=== PATIENT | female | born 1965 | race Caucasian/White ===

== ENCOUNTER 2018-03-13 23:05 | Emergency (ER) | payer BC ==
--- NOTE | 2018-03-14 00:17 | EDPHY ---
H & P Stated Complaint: L ankle inj Source: Patient, Family () Exam Limitations: No limitations - Personal History LMP (Females 10-55): Post Menopausal Current Tetanus Diphtheria and Acellular Pertussis (TDAP): Yes - Medical/Surgical History Hx Asthma: No Hx Chronic Respiratory Disease: No Hx Diabetes: No Hx Cardiac Disease: No Hx Renal Disease: No Hx Cirrhosis: No Hx Alcoholism: No Hx HIV/AIDS: No Hx Splenectomy or Spleen Trauma: No Other PMH: HTN - Social History Smoking Status: Never smoked Time Seen by Provider: 03/14/18 00:15 HPI/ROS: HPI: This is a 52-year-old female who presents with Chief Complaint: Left ankle injury Location: Left ankle Quality: Injury Duration: 1-3 hours prior to arrival Signs and Symptoms: No bleeding, no radiation, no numbness, no weakness, no tingling, no incontinence, + decreased range of motion, + swelling, + pain, no fever Timing: Acute Severity: Moderate Context: Patient is originally from [facility] here for the grateful [place] with her presents with complaints of left ankle injury while at the concert. Patient reports that she was getting into the music and she lost her balance causing her to twist her ankle. She is unsure but she somehow twisted her left ankle. Upon trying to ambulate she had increased pain with weight-bearing status. EMS taped her ankle at the concert. She notes bruising of her ankle. Denies LOC/head injury/neck pain/dizziness/nausea/vomiting/ amnesia. Patient is to drinking alcohol and smoking marijuana this evening. Modifying Factors: Comment: ROS: see HPI Constitutional: No fever, no chills, no weight loss Eyes: No blurred vision Respiratory: No shortness of breath, no cough Cardiovascular: No chest pain Gastrointestinal: No nausea, no vomiting no diarrhea Genitourinary: No dysuria Extremities: No myalgias Neurologic: No weakness, no numbness Skin: No rashes Hematologic: No bruising, no bleeding MEDICAL/SURGICAL/SOCIAL HISTORY: Medical history: Generally healthy. Does not take any regular medications. Postmenopausal Surgical history: Denies Social history: Never smoked. CONSTITUTIONAL: Extremely polite and cooperative middle-aged white female, awake and alert, no obvious distress HEENT: Atraumatic and normocephalic. NECK: supple, no midline tenderness, flexion 45 degrees, extension 45 degrees, right and left lateral flexion 45 degrees. No meningismus. Cardiovascular: Normal S1/S2, regular rate, regular rhythm, without murmur rub or gallop. PULMONARY/CHEST: Symmetrical and nontender. no crepitus. Clear to auscultation bilaterally. Good air movement. No accessory muscle usage. ABDOMEN: Soft, nondistended, nontender, no ecchymosis. PELVIC: no pain with rocking; bilateral hips flexion 125 degrees, extension 30 degrees, with no pain internal rotation and no pain external rotation. BACK: No midline tenderness, no paraspinous spasm, deep tendon reflexes 2/2, no pain with straight leg raise, No foot drop. Achilles reflexes are equal bilaterally. Able to walk on heels and toes without difficulty. EXTREMITIES: 2/2 pulses, strength 5/5, left Ankle: Moderate swelling and bruising noted on both medial and lateral malleolus with tenderness to palpation. Plantar flexion is decreased to 20, dorsiflexion decreased to 10. Moderate tenderness/swelling Anterior talofibular ligament. No tenderness/ swelling Calcaneofibular ligament, moderate tenderness/swelling posterior talofibular ligament, mild tenderness/swelling posterior inferior tibiofibular ligament. Achilles tendon intact. DIP/PIP/MCP flexion/extension intact with good light touch sensation. no deformities, no clubbing, no cyanosis or edema. NEUROLOGICAL: no focal neuro deficits. GCS 15. Light touch sensation intact. SKIN: Warm and dry, no erythema. no rash. Good capillary refill. (Jolie,Terra) Constitutional: Initial Vital Signs Temperature (C) 36.4 C 03/13/18 23:09 Heart Rate 100 03/13/18 23:09 Respiratory Rate 18 03/13/18 23:09 Blood Pressure 108/71 03/13/18 23:09 O2 Sat (%) 96 03/13/18 23:09 O2 Delivery Mode Room Air Allergies/Adverse Reactions: No Known Allergies Allergy (Unverified 03/13/18 23:06) Home Medications: Medication Instructions Recorded oxyCODONE/APAP 5/325 [Percocet 1 - 2 tab PO Q4H PRN #20 tab 03/14/18 5/325 (*)] Medical Decision Making - Diagnostics Imaging Results: Imaging Impressions Ankle X-Ray 03/13/18 23:10 Impression: 1. Trimalleolar fracture as detailed above with mild lateral displacement of the talus and distal fibular fracture. Procedures: Procedure: Splint placement. A long leg posterior gita splint was applied by the Emergency Room auto emissions technician. After application of the splint I returned and re-examined the patient. The splint was adequately immobilizing the joint and distal to the splint the patient's circulation and sensation was intact. (Tequila Dave) ED Course/Re-evaluation: Patient is currently not experiencing any pain upon arrival. Ice pack applied. Left foot x-ray ordered and my read shows trimalleolar fracture. Patient placed in long leg posterior [place] splint, crutches provided, orthopedic referral. X-rays placed on disc as patient will be traveling back to [facility] for follow-up care. The patient prepack of Percocet as well as a prescription for same for pain control. No signs of neurovascular compromise/tenting of skin/compartment syndrome/ extremities and joints examined above and below area of concern and are neurovascularly intact. This patient was seen under the supervision of my secondary supervising physician. I evaluated care for this patient independently. Discussed this patient with Dr. Gomez the. (Tequila Dave) PHYSICIAN DOCUMENTATION: The patient was evaluated and managed by the Physician Care Management Associate. My co- signature indicates that I have reviewed this chart and I agree with the findings and plan of care as documented. I am the secondary supervising physician. (Faviola Jurado) Differential Diagnosis: Ankle injury differential diagnosis includes but is not limited to tibia fracture, fibula fracture, metatarsal fracture, LisFranc fracture, achilles tendon rupture, sprain. (Tequila Dave) - Data Points Medications Given: Discontinued Medications Oxycodone/Acetaminophen (Percocet 5/325mg Prepack#4) 1 btl TAKEHOME EDNOW ONE Stop: 03/14/18 00:26 Last Admin: 03/14/18 00:57 Dose: 1 btl Departure - Departure Disposition: Home, Routine, Self-Care Clinical Impression: Trimalleolar fracture of ankle, closed Qualifiers: Encounter type: initial encounter Laterality: left Qualified Code(s): S82.852A - Displaced trimalleolar fracture of left lower leg, initial encounter for closed fracture Condition: Good Instructions: Oxycodone/Acetaminophen (By mouth), Ankle Fracture (ED), Crutch Instructions (ED), Splint Care (ED) Additional Instructions: Keep the splint dry and in place until seen by Orthopedics. Use crutches to aid ambulation. Start with non weight-bearing status on the left lower extremity. Take Tylenol 650 mg every 4 hours and/or Ibuprofen 600 mg every 8 hours with food as needed for pain. Use Percocet every 6 hours as needed for severe/break through pain. Do not use Tylenol and Percocet concomitantly. Apply ice for 30 minutes at a time; 2-3 times per day for the next 1-2 days. Follow up with Orthopedics in 5-7 days at which time they will evaluate and recommend with you if conservative management versus surgery is indicated. Your x-ray images have been placed on a disc so that you can take them with you to orthopedic follow-up. Follow-Up: Please follow-up as noted above. Follow-up sooner if your condition worsens or if you develop any new problems. Call as soon as possible for an appointment. Be clear when you call for an appointment that this is an Emergency Department follow-up. Contact the Emergency Department if you have trouble arranging follow-up care. Our referrals are not based on your insurance network. When time allows, contact your insurance carrier to verify the referral physician is in your plan. If not, get a referral for an in-networking administrator. Referrals: Helena Lazo MD [Medical Doctor] - As per Instructions Prescriptions: oxyCODONE/APAP 5/325 [Percocet 5/325 (*)] 1 - 2 tab PO Q4H PRN #20 tab PRN Reason: Pain, Severe
[2018-03-14] MEDS ORDERED: OXYCODONE/APAP 5/325MG PREPACK#4 BTL TAKEHOME ONE (00:25)
[2018-03-14 01:19] VITALS: BP 111/66
== END 2018-03-14 01:15 | disposition home or self-care (01) ==
PROC: 2W3MX1Z Immobilization of Left Lower Extremity using Splint (ICD-10-PCS; principal; 2018-03-13)
DX: S82.852A Displaced trimalleolar fracture of left lower leg, initial encounter for closed fracture (principal); I10 Essential (primary) hypertension; X50.9XXA Other and unspecified overexertion or strenuous movements or postures, initial encounter; Y92.252 Music hall as the place of occurrence of the external cause; Y99.8 Other external cause status; Y93.89 Activity, other specified